=== PATIENT | male | born 1940 | race American Indian/Alaskan Native ===

== ENCOUNTER 2018-06-30 11:06 | Observation (INO) | payer MEDICARE, OTHER ==
--- NOTE | 2018-06-30 11:49 | Short Stay Summary ---
Short Stay Documentation Date of service: 06/30/18 - History H&P: obtained from office - Allergies and Medications Current Medications: Allergies Penicillins Allergy (Verified 06/24/18 12:24) Rash Home Medications Medication Instructions Recorded Confirmed Last Taken Type Aspirin [Lo-Dose Aspirin EC] 81 mg PO DAILY 06/24/18 06/24/18 Unknown History AtorvaSTATin [Lipitor] 20 mg PO QHS 06/24/18 06/24/18 Unknown History Brimonidine 0.15% [Alphagan P 1 drops OP DAILY 06/24/18 06/24/18 Unknown History 0.15%] Metoprolol [Lopressor] 12.5 mg PO BID 06/24/18 06/24/18 Unknown History Multivit-Min/FA/Lycopen/Lutein 1 each PO DAILY 06/24/18 06/24/18 Unknown History [Centrum Silver Tablet] Nitroglycerin [Nitrostat] 0.4 mg SL PRN PRN 06/24/18 06/24/18 Unknown History Omeprazole 40 mg PO DAILY 06/24/18 06/24/18 Unknown History Vit C/E/Zn/Coppr/Lutein/Zeaxan 1 each PO BID 06/24/18 06/24/18 Unknown History [Preservision Areds 2 Softgel] hydrALAZINE [Apresoline] 25 mg PO BID 06/24/18 06/24/18 Unknown History - Brief post op/procedure progress note Date of procedure: 06/30/18 Pre-op diagnosis: ureteral stone Post-op diagnosis: same Anesthesia: GETA Surgeon: VINCE VELAZQUEZ Estimated blood loss: minimal Condition: stable - Hospital course Hospital course: orpacuhome - Disposition Condition at discharge: Good Disposition: DC-01 TO HOME OR SELFCARE Short Stay Discharge Plan Activity: advance as tolerated Follow up with: VINCE VELAZQUEZ MD [Staff Physician] - 7 Days
[2018-06-30] MEDS: LACTATED RINGERS 1,000 ML IV SCH (12:10)
[2018-06-30] MEDS ORDERED: LEVAQUIN 500MG/100ML 500 MG/100 ML BAG IV NR (13:00)
--- NOTE | 2018-06-30 13:28 | Anesthesia Consultation ---
Anesthesia Consult and Med Hx Date of service: 06/30/18 - Airway Anesthetic Teeth Evaluation: Good ROM Head & Neck: Adequate Mental/Hyoid Distance: Adequate Mallampati Class: Class III Intubation Access Assessment: Possibly Difficult - Pulmonary Exam CTA: Yes - Cardiac Exam Cardiac Exam: RRR - Pre-Operative Health Status ASA Pre-Surgery Classification: ASA3 Proposed Anesthetic Plan: General - Pulmonary Hx Smoking: Yes (STOPPED 1967) Hx Respiratory Symptoms: No Hx Sleep Apnea: Yes (DX SLEEP APNEA , NO CPAP USE.) - Cardiovascular System Hx Hypertension: Yes (took metoprolol and hydralazine today) Hx Heart Attack/AMI: No Hx Percutaneous Transluminal Coronary Angioplasty (PTCA): No 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 Cardiology clearance on chart. Normal TTE 10/2017.
--- NOTE | 2018-06-30 13:28 | Anesthesia Day of Surgery ---
Anesthesia Day of Surgery - Day of Surgery Patient Examined: Yes Patient H&P Reviewed: Yes Patient is NPO: Yes Beta Blockers: Yes Cardiac Clearance: Yes
--- NOTE | 2018-06-30 13:29 | XRay Report ---
AP ABDOMEN: HISTORY: Kidney stone. The abdominal gas pattern is unremarkable. No masses or organomegaly is identified and there is no gross evidence of free air or fluid. There are a few subtle calcifications overlying the mid left kidney measuring up to 3 mm. No obvious right nephrolithiasis or ureteral stones. IMPRESSION: Left nephrolithiasis.
[2018-06-30] MEDS ORDERED: DILAUDID ONE ×2 (13:32→15:33)
[2018-06-30] MEDS ORDERED: DIPRIVAN 10 MG/ML IV ONE (13:32)
[2018-06-30] MEDS ORDERED: XYLOCAINE MPF 2% ONE (13:33)
[2018-06-30] MEDS ORDERED: WATER FOR IRRIG STERILE IR ONE (13:59)
[2018-06-30] MEDS ORDERED: OMNIPAQUE 300 MG/50 ML (CATH LAB) IV ONE (14:04)
--- NOTE | 2018-06-30 15:08 | Post Operative Note ---
Pre-op diagnosis: left upj stone 8mm Post-op diagnosis: same Findings: some debris mod kidney fludi for cx Procedure: cysto, left ureteroscopy, left stent placement 6x28 - staged Anesthesia: KOBEA Surgeon: VINCE VELAZQUEZ Estimated blood loss: minimal Pathology: none Specimen disposition: to lab (left renal pelvis fluid to culture) Condition: stable Disposition: PACU
[2018-06-30] MEDS ORDERED: TYLENOL PO PRN (15:12)
[2018-06-30] MEDS ORDERED: PROVENTIL IH PRN (15:12)
[2018-06-30] MEDS ORDERED: ZOFRAN IV PRN (15:12)
[2018-06-30] MEDS ORDERED: SODIUM CHLORIDE FLUSH SYRINGE 10 ML IV PRN (15:12)
[2018-06-30] MEDS ORDERED: NITROSTAT SL PRN (15:15)
[2018-06-30] MEDS ORDERED: APRESOLINE IV PRN (15:28)
[2018-06-30] MEDS ORDERED: DILAUDID IV PRN (15:28)
[2018-06-30 15:45] LABS: Basophils % (Auto) 0.8 % (0.0-1.8); Eosinophils # (Auto) 0.3 K/mm3 (0.0-0.4); Eosinophils % (Auto) 4.6 % (0.0-4.3); Hematocrit 35.3 % (35.5-45.6); Hemoglobin 11.7 gm/dl (11.8-15.2); Lymphocytes # (Auto) 1.9 K/mm3 (1.2-5.4); Lymphocytes % (Auto) 34.5 % (13.4-35.0); Mean Corpuscular HGB Conc 33 % (32-34); Mean Corpuscular Volume 95 fl (84-94); Monocytes # (Auto) 0.4 K/mm3 (0.0-0.8); Monocytes % (Auto) 7.8 % (0.0-7.3); Platelet Count 367 K/mm3 (140-440); Red Blood Count 3.71 M/mm3 (3.65-5.03); Red Cell Distribution Width 13.9 % (13.2-15.2)
[2018-06-30] MEDS: PERCOCET 5/325 PO PRN (17:57)
--- NOTE | 2018-06-30 18:45 | History and Physical Report ---
History of Present Illness Date of admission: 06/30/18 15:27 Chief complaint: Im blocked up History of present illness: 78 YO Male with HTN, GERD, HLD, Nephrolithiasis presents for elective cystoscopy. Pt found to have urinary obstruction S/P stent placement as well as surgical findings consistent with pyelonephritis as well as suspected SIRS. Pt admitted directly to hospitalist service. Pt seen and evaluated upon arrival to his room. Pt denies fever, chills, CP, Palpitations, NVD. Pt resting comfortably and is in no acute distress. No reported nursing events. Pt denies uncontrolled pain. Past History Past Medical History: GERD, hypertension, hyperlipidemia Past Surgical History: Other (Cystoscopy, Urinary stent placement. ) Social history: , lives with family. denies: smoking, alcohol abuse, prescription drug abuse Family history: hypertension Medications and Allergies Allergies Allergy/AdvReac Type Severity Reaction Status Date / Time Penicillins Allergy Rash Verified 06/24/18 12:24 Home Medications Medication Instructions Recorded Confirmed Last Taken Type Aspirin [Lo-Dose Aspirin EC] 81 mg PO DAILY 06/24/18 06/30/18 06/16/18 History AtorvaSTATin [Lipitor] 20 mg PO QHS 06/24/18 06/24/18 06/29/18 History Brimonidine 0.15% [Alphagan P 1 drops OP DAILY 06/24/18 06/24/18 06/29/18 History 0.15%] Metoprolol [Lopressor] 12.5 mg PO BID 06/24/18 06/24/18 06/30/18 05:30 History Multivit-Min/FA/Lycopen/Lutein 1 each PO DAILY 06/24/18 06/24/18 06/30/18 05:30 History [Centrum Silver Tablet] Nitroglycerin [Nitrostat] 0.4 mg SL PRN PRN 06/24/18 06/24/18 Unknown History Omeprazole 40 mg PO DAILY 06/24/18 06/24/18 06/29/18 History Vit C/E/Zn/Coppr/Lutein/Zeaxan 1 each PO BID 06/24/18 06/24/18 06/30/18 05:30 History [Preservision Areds 2 Softgel] hydrALAZINE [Apresoline] 25 mg PO BID 06/24/18 06/24/18 06/30/18 05:30 History HYDROcodone/APAP 10-325 [[place] 0.5 - 1 each PO Q6HR PRN #30 tablet 06/30/18 Unknown Rx 10-325 mg TAB] Active Meds: Active Medications Acetaminophen (Tylenol) 650 mg PO Q4H PRN PRN Reason: Pain MILD(1-3)/Fever >100.5/HEDRICK Albuterol (Proventil) 2.5 mg IH Q4HRT PRN PRN Reason: Shortness Of Breath Atorvastatin Calcium (Lipitor) 20 mg PO QHS [facility] Brimonidine Tartrate (Alphagan P 0.15%) 1 drops OD DAILY XAVIER Hydralazine HCl (Apresoline) 25 mg PO BID XAVIER Hydralazine HCl (Apresoline) 10 mg IV Q20M PRN PRN Reason: HTN SBP>160 Last Admin: 06/30/18 15:45 Dose: 10 mg Documented by: Hydromorphone HCl (Dilaudid) 0.5 mg IV Q10MIN PRN PRN Reason: Pain , Severe (7-10) Stop: 06/30/18 23:59 Last Admin: 06/30/18 15:38 Dose: 0.5 mg Documented by: Lactated Ringer's (Lactated Ringers) 1,000 mls @ 100 mls/hr IV DIRECT XAVIER Last Admin: 06/30/18 12:10 Dose: 100 mls/hr Documented by: Levofloxacin/Dextrose (Levaquin 500mg/100ml) 500 mg in 100 mls @ 100 mls/hr IV PREOP NR; Protocol Stop: 06/30/18 23:59 Metoprolol Tartrate (Lopressor) 12.5 mg PO BID [facility] Multivitamins/Minerals (Theragran-M Tab) 1 each PO QDAY [facility] Nitroglycerin (Nitrostat) 0.4 mg SL PRN PRN PRN Reason: Chest Pain Ondansetron HCl (Zofran) 4 mg IV Q8H PRN PRN Reason: Nausea And Vomiting Oxycodone/Acetaminophen (Percocet 5/325) 1 tab PO Q6H PRN PRN Reason: Pain, Moderate (4-6) Last Admin: 06/30/18 17:57 Dose: 1 tab Documented by: Pantoprazole Sodium (Protonix) 40 mg PO DAILY XAVIER Sodium Chloride (Sodium Chloride Flush Syringe 10 Ml) 10 ml IV BID XAVIER Sodium Chloride (Sodium Chloride Flush Syringe 10 Ml) 10 ml IV PRN PRN PRN Reason: LINE FLUSH Review of Systems Constitutional: no weight loss, no weight gain, no fever, no chills Ears, nose, mouth and throat: no ear pain, no ear discharge, no tinnitis, no decreased hearing, no nose pain Cardiovascular: no chest pain, no orthopnea, no palpitations, no edema, no syncope, no lightheadedness Respiratory: no cough, no cough with sputum, no excessive sputum, no hemoptysis, no shortness of breath Gastrointestinal: no abdominal pain, no nausea, no vomiting, no diarrhea, no con stipation Genitourinary Male: no hematuria, no discharge, no urinary frequency, no urinary hesitancy, no nocturia Rectal: no pain, no incontinence, no bleeding Musculoskeletal: no neck stiffness, no neck pain, no shooting arm pain, no arm numbness/tingling, no low back pain, no shooting leg pain Integumentary: no rash, no pruritis, no redness, no sores, no wounds Neurological: no transient paralysis, no paralysis, no weakness, no parathesias, no numbness Psychiatric: no anxiety, no memory loss, no change in sleep habits, no sleep disturbances, no insomnia Endocrine: no cold intolerance, no heat intolerance, no polyphagia, no excessive thirst, no polydipsia, no polyuria Hematologic/Lymphatic: no easy bruising, no easy bleeding Allergic/Immunologic: no urticaria, no allergic rhinitis, no wheezing Exam - Constitutional Vitals: Temp Pulse Resp BP Pulse Ox 97.9 F 73 16 158/72 96 06/30/18 16:55 06/30/18 16:55 06/30/18 16:55 06/30/18 16:55 06/30/18 16:55 General appearance: Present: no acute distress, well-nourished - EENT Eyes: Present: PERRL ENT: hearing intact, clear oral mucosa - Neck Neck: Present: supple, normal ROM - Respiratory Respiratory effort: normal Respiratory: bilateral: CTA - Cardiovascular Heart Sounds: Present: S1 & S2. Absent: rub, click - Extremities Extremities: pulses symmetrical, No edema Peripheral Pulses: within normal limits - Abdominal General gastrointestinal: Present: soft, non-tender, non-distended, normal bowel sounds Male genitourinary: Present: normal - Integumentary Integumentary: Present: clear, warm, dry - Musculoskeletal Musculoskeletal: gait normal, strength equal bilaterally - Psychiatric Psychiatric: appropriate mood/affect, intact judgment & insight - Neurologic Neurologic: CNII-XII intact, moves all extremities Results - Labs CBC & Chem 7: 06/30/18 15:35 Labs: Abnormal lab results 06/30/18 Range/Units 15:35 Hgb 11.7 L (11.8-15.2) gm/dl Hct 35.3 L (35.5-45.6) % MCV 95 H (84-94) fl [place] % (Auto) 7.8 H (0.0-7.3) % Eos % (Auto) 4.6 H (0.0-4.3) % Assessment and Plan - Patient Problems (1) Urinary obstruction Current Visit: Yes Status: Acute Plan to address problem: Urology consulted, supportive care. S/P cysto with stent placement, monitor uop q shift, serial abdominal exam. (2) Pyelonephritis Current Visit: Yes Status: Acute Plan to address problem: IV antibiotic therapy, CBC, CMP, cultures sent from operating room. (3) HTN (hypertension) Current Visit: Yes Status: Acute Qualifiers: Hypertension type: essential hypertension Qualified Code(s): I10 - Essential (primary) hypertension Plan to address problem: monitor bp q shift (4) GERD (gastroesophageal reflux disease) Current Visit: Yes Status: Acute Qualifiers: Esophagitis presence: without esophagitis Qualified Code(s): K21.9 - Gastro-esophageal reflux disease without esophagitis Plan to address problem: PPI therapy (5) DVT prophylaxis Current Visit: Yes Status: Acute Plan to address problem: SCD to BLE while in bed, prophylactic lovenox
[2018-06-30] MEDS: APRESOLINE PO SCH (21:59)
[2018-06-30] MEDS ORDERED: SODIUM CHLORIDE FLUSH SYRINGE 10 ML IV SCH (22:00)
[2018-06-30] MEDS ORDERED: [UNRECOGNIZED DRUG - OTHER] PO SCH (22:00)
[2018-06-30] MEDS ORDERED: LOVENOX SUB-Q SCH (22:00)
[2018-07-01] MEDS: PERCOCET 5/325 PO PRN ×2 (00:51→09:32)
[2018-07-01] MEDS: LOPRESSOR PO SCH ×2 (00:53→10:56)
[2018-07-01] MEDS: LACTATED RINGERS 1,000 ML IV SCH (01:02)
[2018-07-01 04:46] LABS: Basophils % (Auto) 0.7 % (0.0-1.8); Eosinophils # (Auto) 0.2 K/mm3 (0.0-0.4); Eosinophils % (Auto) 2.8 % (0.0-4.3); Hematocrit 34.7 % (35.5-45.6); Hemoglobin 11.6 gm/dl (11.8-15.2); Lymphocytes # (Auto) 1.6 K/mm3 (1.2-5.4); Mean Corpuscular HGB Conc 34 % (32-34); Mean Corpuscular Volume 95 fl (84-94); Monocytes # (Auto) 0.6 K/mm3 (0.0-0.8); Monocytes % (Auto) 8.5 % (0.0-7.3); Platelet Count 360 K/mm3 (140-440); Red Blood Count 3.63 M/mm3 (3.65-5.03); Red Cell Distribution Width 13.6 % (13.2-15.2)
[2018-07-01 05:05] LABS: Calcium 9.5 mg/dL (8.4-10.2)
--- NOTE | 2018-07-01 07:51 | Fluoroscopy Report ---
FLUORO RETROGRADE UROGRAPHY INDICATION: Left ureteral stone. COMPARISON: Abdominal x-ray from earlier today. FINDINGS: Total of 10 submitted fluoroscopic images. Procedure performed by Dr. Mcmillan. Omnipaque 300 utilized. 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 Subsequent bilateral retrograde pyelograms grossly unremarkable on the right without hydronephrosis, though partly limited due to motion. Contrast also noted in the urinary bladder. Left proximal to mid ureteral calculus/filling defect about L3 level though demonstrated. Left ureteroscopy and satisfactory stent placement subsequently performed. CONCLUSION: Intraoperative fluoroscopic assistance provided for bilateral retrograde pyelograms, left ureteroscopy and left ureteral stent placement in this patient with left ureteral stone, as above. Please also correlate with procedural notes. Thank you for the opportunity to participate in this patient's care.
[2018-07-01] MEDS ORDERED: ALPHAGAN P 0.15% OD SCH (10:00)
[2018-07-01] MEDS ORDERED: PROTONIX PO SCH (10:00)
[2018-07-01] MEDS ORDERED: THERAGRAN-M Tab PO SCH (10:00)
[2018-07-01] MEDS ORDERED: NON-FORMULARY (Omeprazole [Omeprazole] 40 MG) PO SCH (10:00)
[2018-07-01] MEDS ORDERED: NON-FORMULARY (Multivit-Min/Fa/Lycopen/Lutein [Centrum Silver Tablet] 1 EACH) PO SCH (10:00)
[2018-07-01] MEDS ORDERED: LEVAQUIN 500MG/100ML 500 MG/100 ML BAG IV SCH (10:00)
[2018-07-01] MEDS: APRESOLINE PO SCH (10:56)
[2018-07-01 11:23] VITALS: BP 143/59
--- NOTE | 2018-07-01 11:45 | Discharge Summary ---
Providers - Providers Date of Admission: 06/30/18 15:27 Attending physician: ALEAXNDER KINNEY MD 06/30/18 15:12 Consult to Physician [CONS] Routine Comment: COMPLETED Consulting Provider: VINCE VELAZQUEZ Physician Instructions: Reason For Exam: urinary obstruction Primary care physician: TRACEE LEAL Hospitalization Reason for admission: URINARY RETENTION Condition: Good Hospital course: 78 YO Male with HTN, GERD, HLD, Nephrolithiasis presents for elective cystoscopy. Pt found to have urinary obstruction S/P stent placement as well as surgical findings consistent with pyelonephritis as well as suspected SIRS. Pt admitted directly to hospitalist service. Pt seen and evaluated upon arrival to his room. Pt denies fever, chills, CP, Palpitations, NVD. Pt resting comfortably and is in no acute distress. No reported nursing events. Pt denies uncontrolled pain. He was treated with abx, no organism was noted on culture, and following discussion with urology the alfred was discontinued per their request and patient discharged today to follow with urology outpatient. (1) Urinary obstruction (2) Pyelonephritis (3) HTN (hypertension) (4) GERD (gastroesophageal reflux disease) Disposition: DC-01 TO HOME OR SELFCARE Time spent for discharge: 32 mins Core Measure Documentation - Palliative Care Palliative Care/ Comfort Measures: Not Applicable - Core Measures Any of the following diagnoses?: none Exam - Physical Exam Narrative exam: General appearance: Present: no acute distress, well-nourished - EENT Eyes: Present: PERRL ENT: hearing intact, clear oral mucosa - Neck Neck: Present: supple, normal ROM - Respiratory Respiratory effort: normal Respiratory: bilateral: CTA - Cardiovascular Heart Sounds: Present: S1 & S2. Absent: rub, click - Extremities Extremities: pulses symmetrical, No edema Peripheral Pulses: within normal limits - Abdominal General gastrointestinal: Present: soft, non-tender, non-distended, normal bowel sounds Male genitourinary: Present: normal - Integumentary Integumentary: Present: clear, warm, dry - Musculoskeletal Musculoskeletal: gait normal, strength equal bilaterally - Psychiatric Psychiatric: appropriate mood/affect, intact judgment & insight - Alfred IN PLACE -Neurologic Neurologic: CNII-XII intact, moves all extremities - Constitutional Vitals: Temp Pulse Resp BP Pulse Ox 98.1 F 62 18 143/59 96 07/01/18 11:22 07/01/18 11:22 07/01/18 11:22 07/01/18 11:22 07/01/18 11:22 Plan Activity: advance as tolerated, fall precautions Diet: low fat Special Instructions: record daily weights, record daily BP diary Follow up with: VINCE VELAZQUEZ MD [Staff Physician] - 7 Days Prescriptions: Ciprofloxacin HCl [Ciprofloxacin TAB] 500 mg PO BID #6 tablet HYDROcodone/APAP 10-325 [[place] 10-325 mg TAB] 0.5 - 1 each PO Q6HR PRN #30 tablet PRN Reason: Pain
[2018-07-01] MEDS ORDERED: LOVENOX SUB-Q SCH (22:00)
[2018-07-03] MEDS ORDERED: LEVAQUIN 500MG/100ML 500 MG/100 ML BAG IV SCH (10:00)
--- NOTE | 2018-07-14 12:17 | Operative Report ---
PREOPERATIVE DIAGNOSIS: Ureteral stone. POSTOPERATIVE DIAGNOSES: Ureteral stone, hydronephrosis and infected hydronephrosis. SURGEON: Brendan Mcmillan MD ANESTHESIA: General. ESTIMATED BLOOD LOSS: Minimal. COMPLICATIONS: None. FINDINGS: Purulent drainage from the kidney, only stent placed. PROCEDURE: Cystoscopy, RPG, ureteral stent placement. CLINICAL INDICATIONS: Counseled RCBA, antibiotics, SCDs. The patient had a stone, was scheduled for this procedure, maybe had a ____. Antibiotics, SCD. DESCRIPTION OF PROCEDURE: The patient was transferred to OR suite in supine position, anesthesia, dorsal lithotomy, prepped and draped in standard fashion. A 22-German scope passed. Pancystoscopy 30 and 70 degree lens, no tumors or abnormality. The side of the stone, 8-German cone-tipped catheter was used to cannulate, contrast injected up the ureter, some mild hydroureter. Glidewire passed, some debris came down. It was elected due to signs of infection to just place a stent. A 6-German double-J stent was passed over the wire under direct and fluoroscopic visualization. Wire and string was removed. Nice proximal and distal J. Cardenas catheter inserted, balloon inflated. Exam under anesthesia, no prostate nodules. Testicles, no masses on palpation. JOB# [id number] ATS/NTS
== END 2018-07-01 17:06 | disposition home or self-care (01) ==
LOC: OR 11:06 → 3B-SURG 15:27 → INTOOBSV 15:27 → 3B-SURG 16:46
PROVIDERS: ADMIT Internal Medicine; ATTEND Internal Medicine
DX: N20.1 Calculus of ureter (principal); N32.0 Bladder-neck obstruction; N12 Tubulo-interstitial nephritis, not specified as acute or chronic; K21.9 Gastro-esophageal reflux disease without esophagitis; E78.5 Hyperlipidemia, unspecified; I12.9 Hypertensive chronic kidney disease with stage 1 through stage 4 chronic kidney disease, or unspecified chronic kidney disease; N18.9 Chronic kidney disease, unspecified; G47.30 Sleep apnea, unspecified; Z98.890 Other specified postprocedural states; Z79.82 Long term (current) use of aspirin; Z79.899 Other long term (current) drug therapy; Z88.0 Allergy status to penicillin; Z96.652 Presence of left artificial knee joint; Z88.8 Allergy status to other drugs, medicaments and biological substances
CPT/HCPCS: 36415; 52332; 74018; 74420; 80048; 82962; 85025; 87116; 94760; 96365; 96375; A4217; A9270; C1758; C1769; C2617; G0378; J0360; J1170; J1956; J2704; J7120; Q9967

== ENCOUNTER 2018-08-11 10:13 | Day surgery (SDC) | payer MEDICARE, OTHER ==
[~2018-08-11 10:13] MED LIST: LACTATED RINGERS 1,000 ML IV SCH
--- NOTE | 2018-08-11 11:17 | XRay Report ---
AP ABDOMEN: HISTORY: Left renal stone, preop lithotripsy. The renal shadows are normal size and contour. Left nephrolithiasis is again noted. Suggestion of a large stone in the inferior pole of the left kidney measuring up to 1.3 cm. A left ureteral stent is in good position. The bowel gas pattern is unremarkable. Radiotherapy beads are noted in the prostate gland. IMPRESSION: Left nephrolithiasis.
[2018-08-11] MEDS ORDERED: SUBLIMAZE IV PRN (11:50)
--- NOTE | 2018-08-11 11:50 | Anesthesia Consultation ---
Anesthesia Consult and Med Hx Date of service: 08/11/18 - Airway Anesthetic Teeth Evaluation: Good ROM Head & Neck: Adequate Mental/Hyoid Distance: Adequate Mallampati Class: Class III Intubation Access Assessment: Probably Good - Pulmonary Exam CTA: Yes - Cardiac Exam Cardiac Exam: RRR - Pre-Operative Health Status ASA Pre-Surgery Classification: ASA3 Proposed Anesthetic Plan: General - Pulmonary Hx Smoking: Yes (STOPPED 1967) Hx Respiratory Symptoms: No Hx Sleep Apnea: Yes (partially compliant with CPAP) - Cardiovascular System Hx Hypertension: Yes Hx Heart Attack/AMI: No Hx Percutaneous Transluminal Coronary Angioplasty (PTCA): No Hx Cardia Arrhythmia: 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 No change in health since last procedure in 06/2018.
--- NOTE | 2018-08-11 11:51 | Anesthesia Day of Surgery ---
Anesthesia Day of Surgery - Day of Surgery Patient Examined: Yes Patient H&P Reviewed: Yes Patient is NPO: Yes Beta Blockers: Yes
[2018-08-11] MEDS ORDERED: LEVAQUIN 500MG/100ML 500 MG/100 ML BAG IV NR (12:00)
--- NOTE | 2018-08-11 14:09 | Short Stay Summary ---
Short Stay Documentation Date of service: 08/11/18 - History H&P: obtained from office - Allergies and Medications Current Medications: Allergies Penicillins Allergy (Verified 06/24/18 12:24) Rash Home Medications Medication Instructions Recorded Confirmed Last Taken Type Aspirin [Lo-Dose Aspirin EC] 81 mg PO DAILY 06/24/18 07/29/18 08/10/18 09:00 History AtorvaSTATin [Lipitor] 20 mg PO QHS 06/24/18 07/29/18 08/10/18 09:00 History Brimonidine 0.15% [Alphagan P 1 drops OP DAILY 06/24/18 07/29/18 08/10/18 09:00 History 0.15%] Metoprolol [Lopressor TAB] 12.5 mg PO BID 06/24/18 07/29/18 08/10/18 09:00 History Multivit-Min/FA/Lycopen/Lutein 1 each PO DAILY 06/24/18 07/29/18 08/10/18 09:00 History [Centrum Silver Tablet] Nitroglycerin [Nitrostat] 0.4 mg SL PRN PRN 06/24/18 07/29/18 08/10/18 09:00 His tory Omeprazole 40 mg PO DAILY 06/24/18 07/29/18 08/10/18 09:00 History Vit C/E/Zn/Coppr/Lutein/Zeaxan 1 each PO BID 06/24/18 07/29/18 08/10/18 09:00 History [Preservision Areds 2 Softgel] hydrALAZINE [Apresoline TAB] 25 mg PO BID 06/24/18 07/29/18 08/10/18 09:00 History HYDROcodone/APAP 10-325 [[place] 0.5 - 1 each PO Q6HR PRN #30 tablet 06/30/18 07/29/18 08/10/18 09:00 Rx 10-325 mg TAB] Ciprofloxacin HCl [Ciprofloxacin 500 mg PO BID #6 tablet 07/01/18 07/29/18 08/10/18 09:00 Rx TAB] Active Medications Fentanyl (Sublimaze) 50 mcg IV Q5MIN PRN PRN Reason: Pain , Severe (7-10) Stop: 08/11/18 23:59 Lactated Ringer's (Lactated Ringers) 1,000 mls @ 75 mls/hr IV DIRECT XAVIER Stop: 08/11/18 23:59 Last Admin: 08/11/18 11:01 Dose: 75 mls/hr Documented by: Levofloxacin/Dextrose (Levaquin 500mg/100ml) 500 mg in 100 mls @ 100 mls/hr IV PREOP NR; Protocol Stop: 08/11/18 23:59 - Brief post op/procedure progress note Date of procedure: 08/11/18 Pre-op diagnosis: left prox uret stone 6x8mm Post-op diagnosis: other (left renal stone) Procedure: cysto, left urs, laser, stent 6x28 staged for future removal Anesthesia: GETA Findings: uretrea stone pushed back into kiidney good caliber ureter to pass frags Surgeon: VINCE VELAZQUEZ Estimated blood loss: minimal Pathology: none Condition: stable - Hospital course Hospital course: orpacvuhome - Disposition Condition at discharge: Good Disposition: DC-01 TO HOME OR SELFCARE Short Stay Discharge Plan Activity: advance as tolerated Diet: advance as tolerated ( ) Follow up with: VINCE VELAZQUEZ MD [Staff Physician] - 7 Days Prescriptions: HYDROcodone/APAP 10-325 [[place] 10-325 mg TAB] 0.5 - 1 each PO Q6HR PRN #20 tablet PRN Reason: Pain
[2018-08-11] MEDS ORDERED: SUBLIMAZE ONE (14:15)
[2018-08-11] MEDS ORDERED: ZOFRAN ONE ×2 (14:15→15:51)
[2018-08-11] MEDS ORDERED: DIPRIVAN 10 MG/ML IV ONE (14:16)
[2018-08-11] MEDS ORDERED: WATER FOR IRRIG STERILE IR ONE (15:30)
[2018-08-11] MEDS ORDERED: XYLOCAINE MPF 2% ONE (15:51)
[2018-08-11 18:08] VITALS: BP 152/75
--- NOTE | 2018-08-12 07:40 | Fluoroscopy Report ---
FLUOROSCOPY RETROGRADE UROGRAPHY: HISTORY: Calculus of the left ureter. FINDINGS: Fluoroscopy was provided by radiology during retrograde urography by the urologist. 16 fluoroscopic images were captured. The images demonstrate left ureteroscopy was performed. A left kidney stone was visualized and a holmium laser was utilized to breakup the stone. A left ureteral stent was replaced with good drainage of the left collecting system on the final image. No images of the right collecting system are presented. Please correlate with the procedural report by Dr. Mcmillan as needed. IMPRESSION: Left renal stone removed. Left ureteral stent replacement.
--- NOTE | 2018-08-18 09:49 | Operative Report ---
PREOPERATIVE DIAGNOSES: Ureteral stone. POSTOPERATIVE DIAGNOSES: Ureteral stone. PROCEDURE: Ureteroscopy, holmium laser fragmentation, stone extraction and stent replacement. ESTIMATED BLOOD LOSS: Minimal. COMPLICATIONS: None. FINDINGS: Ureteral stone. ESTIMATED BLOOD LOSS: Minimal. SURGEON: Brendan Mcmillan M.D. CLINICAL INDICATIONS: Counseled RCBA, antibiotics, SCD. The patient with a history of stent due to the infection and obstruction was counseled and wanted to proceed. DESCRIPTION OF PROCEDURE: The patient transferred to OR suite in supine position, anesthesia, dorsal lithotomy, prepped and draped in standard fashion. A 22-Georgian scope passed. Moderately large lateral lobes. Upon entering the bladder, stent visualized distal J, 0.035 Glidewire was passed adjacent to the stent up to left renal pelvis. Stent visualized, grasped with forceps, pulled out intact. Rigid ureteroscope assembled. This was passed up the ureter. Stone identified, holmium laser fragmentation, stone was fragmented into smaller and smaller pieces, flushed out with triceps as necessary. Scope passed to the proximal ureter. No residual stones identified. Scope was then brought out. Wire backloaded on the cystoscope. A 6-Georgian double-J stent was passed over the wire under direct and fluoroscopic visualization. When the wire and string were removed, nice proximal J, nice distal J, bladder drained, scope withdrawn. The patient awakened and transferred to PACU in good and stable condition. PLAN: Stage for future stent removal. JOB# [id number] ATS/NTS
== END 2018-08-11 17:50 | disposition home or self-care (01) ==
LOC: OR 10:13
PROVIDERS: ATTEND Urology
DX: N20.2 Calculus of kidney with calculus of ureter (principal); H40.9 Unspecified glaucoma; E11.39 Type 2 diabetes mellitus with other diabetic ophthalmic complication; I10 Essential (primary) hypertension; E78.00 Pure hypercholesterolemia, unspecified; G47.30 Sleep apnea, unspecified; K21.9 Gastro-esophageal reflux disease without esophagitis; Z87.440 Personal history of urinary (tract) infections; Z95.0 Presence of cardiac pacemaker; Z96.651 Presence of right artificial knee joint; Z85.89 Personal history of malignant neoplasm of other organs and systems; Z88.0 Allergy status to penicillin; Z79.899 Other long term (current) drug therapy; Z79.82 Long term (current) use of aspirin; Z87.891 Personal history of nicotine dependence; Z85.46 Personal history of malignant neoplasm of prostate; Z86.2 Personal history of diseases of the blood and blood-forming organs and certain disorders involving the immune mechanism
CPT/HCPCS: 52356; 74018; 74420; 82962; A4217; C1758; C1769; C2617; J1956; J2405; J2704; J3010; J7120; Q9967